=== PATIENT | female | born 1960 | race Two or more races ===

== ENCOUNTER 2023-06-13 10:10 | Emergency (ER) | payer OTHER ==
[~2023-06-13] VITALS: Ht 157.5 cm; Wt 73.5 kg
[~2023-06-13 10:10] MED LIST: AMITRIPTYLINE H10 MG PO; ZITHROMAX500 MG PO
== END 2023-06-13 12:34 ==
LOC: ER 10:10
DX: R05.9 Cough, unspecified (principal)